=== PATIENT | male | born 1990 | race American Indian/Alaskan Native ===

== ENCOUNTER 2017-01-03 12:13 | Emergency (ER) | payer BC ==
[2017-01-03 12:25] VITALS: BP 120/76
[2017-01-03 12:54] LABS: Bilirubin,Urine NEG (Negative); Blood,Urine NEG (Negative); Ketones,Urine NEG (Negative); Leukocyte Esterase,Urine TR (Negative); Mucus,Urine FEW /HPF; Nitrite,Urine NEG (Negative); Protein,Urine <15 mg/dL mg/dL (Negative); Urobilinogen,Urine < 2.0 mg/dL (<2.0)
[2017-01-03] MEDS ORDERED: ZITHROMAX PO ONE (13:45)
[2017-01-03] MEDS ORDERED: FLAGYL PO ONE (13:45)
[2017-01-03] MEDS ORDERED: ROCEPHIN IM ONE (13:45)
[2017-01-03] MEDS ORDERED: XYLOCAINE 1% MPF 5 mL INFILTRATI ONE (13:45)
--- NOTE | 2017-01-03 13:51 | Emergency Department Report ---
HPI - General Chief Complaint: Urogenital-Male Time Seen by Provider: 01/03/17 13:42 - HPI HPI: 26-year-old male presents ED complaining of intermittent pain with urination into the past 4 days. Patient states 4 days ago he experience some burning type sensation when urinating. Patient states pain also today again he experienced some burning sensation when urinating. Patient admits he has metastasis about a month ago but no other contact. He denies scrotum pain, penile discharge, penile pain He denies fevers/chills/nausea/vomiting/abdominal pain/shortness of breath or any other problems. ED Past Medical Hx - Past Medical History Previous Medical History?: Yes Hx Asthma: Yes - Surgical History Past Surgical History?: No - Social History Smoking Status: Never Smoker Substance Use Type: None ED Review of Systems ROS: Stated complaint: ABD PAIN Other details as noted in HPI Constitutional: denies: chills, fever Eyes: denies: eye pain, eye discharge, vision change ENT: denies: ear pain, throat pain Respiratory: denies: cough, shortness of breath, wheezing Cardiovascular: denies: chest pain, palpitations Endocrine: no symptoms reported Gastrointestinal: denies: abdominal pain, nausea, vomiting, diarrhea, constipation Genitourinary: dysuria, frequency. denies: urgency, hematuria, discharge, testicular pain, testicular mass Musculoskeletal: denies: back pain, joint swelling, arthralgia Skin: denies: rash, lesions Neurological: denies: headache, weakness, paresthesias Psychiatric: denies: anxiety, depression Hematological/Lymphatic: denies: easy bleeding, easy bruising Physical Exam - Physical Exam Vital Signs: Vital Signs 01/03/17 12:20 Temperature 97.9 F Pulse Rate 74 Respiratory 16 Rate Blood Pressure 120/76 O2 Sat by Pulse 100 Oximetry Physical Exam: GENERAL: Alert and oriented x3, no apparent distress, Normal Gait, atraumatic. HEAD: Head is normocephalic and a-traumatic. LUNGS: Symetrical with respiration, No wheezing, no rales or crackles, CTAB. HEART: S1, S2 present, regular rate and rhythm without murmur, no rubs, no gallops. UROGENITAL: No scrotal mass, Scrotum non tender to palpation bilaterally, no hernia, no scars or penile discharge. SKIN: Warm and dry, No lesions, No ulceration or induration present. ED Course Vital Signs 01/03/17 12:20 Temperature 97.9 F Pulse Rate 74 Respiratory 16 Rate Blood Pressure 120/76 O2 Sat by Pulse 100 Oximetry ED Medical Decision Making - Medical Decision Making 26-year-old male presents with STD exposure. ED course: Analysis and gonorrhea and Chlamydia cultures obtained. Urinalysis positive for leukorrhea Patient received 250 mg of Rocephin, azithromycin 1 g, Flagyl 2 g. Discussed with patient possible STD due to exposure. Discussed with patient findings and treatment Discussed prophylaxis treatment patient is to abstain from sex 7-10 days as treatment. Discussed patient partner knowledge and treatment. Discussed the follow-up with the health department for further STD testing. Patient's alert and oriented times 3. Vital signs are normal patient is in no acute distress. Patient will be discharged home with instructions. Critical care attestation.: If time is entered above; I have spent that time in minutes in the direct care of this critically ill patient, excluding procedure time. ED Disposition Clinical Impression: STD exposure, Leukocytes in urine Disposition: DISCHARGED TO HOME OR SELFCARE Is pt being admited?: No Does the pt Need Aspirin: No Condition: Stable Instructions: Safe Sex (ED), Sexually Transmitted Diseases (ED) Referrals: PRIMARY CAREMD [Primary Care Provider] - 3-5 Days LALITA MONTOYA MD [Referring] - 3-5 Days [facility] [Outside] - 3-5 Days [facility] [Outside] - 3-5 Days Forms: Work/School Release Form(ED) Time of Disposition: 14:00
== END 2017-01-03 14:13 | disposition home or self-care (01) ==
LOC: ED 12:13
DX: R30.9 Painful micturition, unspecified (principal); Z20.2 Contact with and (suspected) exposure to infections with a predominantly sexual mode of transmission; R82.99 Other abnormal findings in urine; J45.909 Unspecified asthma, uncomplicated
CPT/HCPCS: 81001; 96372; 99283; J0696